=== PATIENT | male | born 1955 | race Caucasian/White ===

== ENCOUNTER → 2017-06-20 10:51 | Outpatient (CLI) | payer MEDICARE, SELFPAY ==
[2017-06-20 12:07] LABS: Fractionated Inspired Oxygen 32; HCO3 ABG 29 mmol/L (23-27); Oxygen Saturation ABG 85 % (95-100); PCO2 ABG 43.5 mmHg (35-45); TCO2 ABG 30 mmol/L (23-27); pH ABG 7.43 (7.35-7.45)
[2017-06-20 12:08] LABS: PO2 ABG 49 mmHg (80-105)
== END ==
PROVIDERS: Internal Medicine Critical Care Medicine; Visit Provider Student in an Organized Health Care Education/Training Program
DX: R93.1 Abnormal findings on diagnostic imaging of heart and coronary circulation (principal)
CPT/HCPCS: 36600; 82805